=== PATIENT | male | born 1995 | race Caucasian/White ===

== ENCOUNTER 2016-11-27 11:09 | Emergency (ER) | payer OTHER ==
[~2016-11-27] VITALS: Ht 162.6 cm; Wt 71.6 kg
[~2016-11-27 11:09] MED LIST: ONDA4TAB7 SL
[2016-11-27 11:18] VITALS: TEMP 36.8; Ht 162.6 cm; Wt 71.6 kg
[2016-11-27] MEDS ORDERED: SODIUM CHLORIDE 0.9% 1000ML 1,000 ML IV STA (11:33)
[2016-11-27 11:53] LABS: BASO % 0.2 %; BASO ABS # 0.01 K/uL (0-0.2); COMPLETE YES; EOS % 1.5 %; HEMATOCRIT 47.5 % (42-52); IG% 0.2 %; LYMPH % 32.2 %; LYMPH ABS # 1.67 K/uL (1.2-3.4); MEAN CELL VOLUME 82.8 fL (80-100); MEAN CORPUSCULAR HEMOGLOBIN 29.3 pg (25-34); MEAN CORPUSCULAR HGB CONC 35.4 g/dl (32-36); MEAN PLATELET VOLUME 9.7 fL (7.4-10.4); MONO % 7.5 %; NEUT % 58.4 %; PLATELET COUNT 186 K/uL (130-400); RED BLOOD COUNT 5.74 M/uL (4.7-6.1); WHITE BLOOD COUNT 5.19 K/uL (4.8-10.8)
[2016-11-27] MEDS ORDERED: OPTIRAY 320 IV PRN (12:00)
[2016-11-27 12:09] LABS: CALCIUM 9.4 mg/dl (8.5-10.1); CREATININE 1.1 mg/dl (0.60-1.40); POTASSIUM 3.9 mmol/L (3.5-5.1)
[2016-11-27 12:12] LABS: ALB/GLOB RATIO 1.2 (0.9-2)
--- NOTE | 2016-11-27 12:28 | EMERGENCY ROOM VISIT NOTE ---
History First contact with patient: 11:21 Chief Complaint: ABDOMINAL PAIN Stated Complaint: PAIN IN STOMACH AND RIGHT TESTICLE Nursing Triage Summary: R side abdominal pain X 4 days radiates into testicles , + NV intermittently History of Present Illness The patient is a 21 year old male who presents to the Emergency Room with complaints of right testicular pain and rlq pain. The patient states the pain started 3 days ago. He states he notices an area of swelling and tenderness to the right testicle. He states he has some crampy right-sided abdominal discomfort. He rates his discomfort a 4/10. He does not recall any specific injury. He denies any fevers. He denies any nausea or vomiting. he denies diarrhea but states he has had more frequent bowel movements. He denies any dysuria, urgency, frequency. He denies any penile discharge or rash. He denies any history of similar. Review of Systems A 10 system review of systems was completed with positives and pertinent negatives listed in the HPI. Past Medical/Surgical History Medical Problems: (1) No known health problems Family History No significant family history Social History Smoking Status: Never Smoker Housing Status: lives with family Current/Historical Medications No Active Prescriptions or Reported Meds Allergies Coded Allergies: No Known Allergies (Verified , 11/27/16) Physical Exam Vital Signs Date Time Temp Pulse Resp B/P Pulse Ox O2 Delivery O2 Flow Rate FiO2 11/27/16 13:51 74 18 118/62 100 11/27/16 12:44 67 18 120/76 98 Room Air 11/27/16 11:18 36.8 72 20 97 Room Air Physical Exam VITALS: Vitals are noted on the nurse's note and reviewed by myself. Vital signs stable. GENERAL: This is a 21-year-old male, in no acute distress, nondiaphoretic, well- developed well-nourished. SKIN: The skin was without rashes, erythema, edema, or bruising. There is no tenting of the skin. Capillary reflex less than 2 seconds. HEAD: Normocephalic atraumatic. EARS: The external ears are normal in appearance. EYES: Pupils equal round and reactive to light and accommodation. Conjunctivae without injection, sclerae without icterus. Extraocular movements intact. NOSE: Patent, turbinates without inflammation or discharge. MOUTH: Mucous membranes moist. Tonsils are not enlarged. Pharynx without erythema or exudate. Uvula midline. Airway patent. Tongue does not deviate. NECK: Supple without nuchal rigidity. No JVD. HEART: Regular rate and rhythm without murmurs gallops or rubs. LUNGS: Clear to auscultation bilaterally without wheezes, rales or rhonchi. No retractions or accessory muscle use. ABDOMEN: Positive bowel sounds x 4. Soft, minimal lower abdominal tenderness, without masses or organomegaly. : The external genitalia is normal in appearance. There are no penile rashes or lesions. There is mild tenderness to palpation to the lateral aspect of the right scrotum. There is no obvious palpable mass. There is no obvious palpable hernia. MUSCULOSKELETAL: No muscle atrophy, erythema, or edema noted. Full range of motion in all extremities. Normal gait. Strength 5/5 throughout. NEURO: Patient was alert and oriented to person place and time. No focal neurological deficits. Medical Decision & Procedures ER Provider Diagnostic Interpretation: ABDOMINAL ULTRASOUND, RIGHT LOWER QUADRANT HISTORY: Pain RLA pain evaluate for hernia, appendicitis. COMPARISON: None. FINDINGS: The appendix is not identified. No evidence for an inguinal hernia. IMPRESSION: 1. No evidence for right inguinal hernia. 2. Non visibility of the appendix TESTICULAR ULTRASOUND HISTORY: Pain right testi katherine pain COMPARISON: None. FINDINGS: Right testis: There are no intratesticular masses. Normal color flow. No hydrocele. The epididymis is unremarkable. There is a small associated thrombosed varicocele adjacent to the testis. Left testis: There are no intratesticular masses. Normal color flow. No hydrocele. The epididymis is unremarkable. IMPRESSION: 1. Normal testes bilaterally. 2. Small right-sided varicocele showing evidence for probable thrombosis. Laboratory Results 11/27/16 11:40 Red Blood Count 5.74, Mean Corpuscular Volume 82.8, Mean Corpuscular Hemoglobin 29.3, Mean Corpuscular Hemoglobin Concent 35.4, Mean Platelet Volume 9.7, Neutrophils (%) (Auto) 58.4, Lymphocytes (%) (Auto) 32.2, Monocytes (%) (Auto) 7.5, Eosinophils (%) (Auto) 1.5, Basophils (%) (Auto) 0.2, Neutrophils # (Auto) 3.03, Lymphocytes # (Auto) 1.67, Monocytes # (Auto) 0.39, Eosinophils # (Auto) 0.08, Basophils # (Auto) 0.01 11/27/16 11:40 Test 11/27/16 11:40 White Blood Count 5.19 K/uL (4.8-10.8) Red Blood Count 5.74 M/uL (4.7-6.1) Hemoglobin 16.8 g/dL (14.0-18.0) Hematocrit 47.5 % (42-52) Mean Corpuscular Volume 82.8 fL (80-100) Mean Corpuscular Hemoglobin 29.3 pg (25-34) Mean Corpuscular Hemoglobin Concent 35.4 g/dl (32-36) Platelet Count 186 K/uL (130-400) Mean Platelet Volume 9.7 fL (7.4-10.4) Neutrophils (%) (Auto) 58.4 % Lymphocytes (%) (Auto) 32.2 % Monocytes (%) (Auto) 7.5 % Eosinophils (%) (Auto) 1.5 % Basophils (%) (Auto) 0.2 % Neutrophils # (Auto) 3.03 K/uL (1.4-6.5) Lymphocytes # (Auto) 1.67 K/uL (1.2-3.4) Monocytes # (Auto) 0.39 K/uL (0.11-0.59) Eosinophils # (Auto) 0.08 K/uL (0-0.5) Basophils # (Auto) 0.01 K/uL (0-0.2) RDW Standard Deviation 36.2 fL (36.4-46.3) RDW Coefficient of Variation 12.1 % (11.5-14.5) Immature Granulocyte % (Auto) 0.2 % Immature Granulocyte # (Auto) 0.01 K/uL (0.00-0.02) Urine Color YELLOW Urine Appearance CLEAR (CLEAR) Urine pH 6.5 (4.5-7.5) Urine Specific Shannon <= 1.005 (1.000-1.030) Urine Protein NEG (NEG) Urine Glucose (UA) NEG (NEG) Urine Ketones NEG (NEG) Urine Occult Blood NEG (NEG) Urine Nitrite NEG (NEG) Urine Bilirubin NEG (NEG) Urine Urobilinogen NEG (NEG) Urine Leukocyte Esterase NEG (NEG) Anion Gap 10.0 mmol/L (3-11) Est Creatinine Clear Calc Drug Dose 94.8 ml/min Estimated GFR () 109.1 Estimated GFR (Non- 94.1 BUN/Creatinine Ratio 15.0 (10-20) Calcium Level 9.4 mg/dl (8.5-10.1) Total Bilirubin 0.9 mg/dl (0.2-1) Aspartate Amino Transf (AST/SGOT) 20 U/L (15-37) Alanine Aminotransferase (ALT/SGPT) 33 U/L (12-78) Alkaline Phosphatase 56 U/L (45-117) Total Protein 8.2 gm/dl (6.4-8.2) Albumin 4.5 gm/dl (3.4-5.0) Globulin 3.7 gm/dl (2.5-4.0) Albumin/Globulin Ratio 1.2 (0.9-2) Medications Administered Medications (Trade) Dose Ordered Sig/Markell Route Start Time Stop Time Status Last Admin Dose Admin Sodium Chloride (Nss 1000ml) 1,000 ml @ 999 mls/hr Q1H1M STAT IV 11/27/16 11:33 11/27/16 12:33 DC 11/27/16 11:33 999 MLS/HR ED Course The patient was seen and examined. Previous visits were reviewed. The patient does not have a fever or leukocytosis. He does not have any significant electrolyte abnormalities. Urinalysis was negative. Ultrasounds were obtained as above. The ultrasound was nondiagnostic in regards to appendicitis. The patient does appear to have a thrombosed varicocele on the right. The patient was initially drinking oral contrast in the event that we would need to perform CT imaging of the abdomen and pelvis. However, we did find the source of the patient's pain on ultrasound and the CT imaging was canceled. The patient presents to the emergency Department with complaints of testicular pain. He does have tenderness to the right testicle. There is no obvious hernia on imaging or examination. The patient appears to have a thrombosed varicocele. This is still likely etiology of his pain. I discussed the case with urology, Dr. Paredes, he states that this will resolve on its own. The patient declined pain medication. He was advised to rest. He was given the information for urology for a follow-up if symptoms are not improving. The patient should return to the ER with any worsening symptoms. The case was discussed with Dr. Mcmillan who agrees with the assessment and treatment plan. Medical Decision DIFFERENTIAL DIAGNOSIS: Hepatitis, cholecystitis, cholangitis, biliary colic, pancreatitis, pneumonia, subdiaphragmatic abscess, appendicitis, inguinal hernia , nephrolithiasis, inflammatory bowel disease, mesenteric adenitis, peptic ulcer disease, GERD, gastritis, pancreatitis, myocardial infarction, pericarditis, ruptured aortic aneurysm, appendicitis, gastroenteritis, bowel obstruction, splenic infarct, diverticulitis, mesenteric ischemia, metabolic, peritonitis, testicular torsion, varicocele, epididymitis, neoplasm, among others. Impression Primary Impression: Thrombosed varicocele Departure Information Dispostion Home / Self-Care Condition GOOD Prescriptions No Active Prescriptions or Reported Meds Referrals Edmund Hill M.D. (PCP) Larry Paredes M.D. Patient Instructions ED Varicocele, [facility] Additional Instructions Warm compresses Motrin 600mg every 6-8 hours for moderate pain Rest Return with worsening symptoms Follow up with Dr. Paredes if pain does not improve
--- NOTE | 2016-11-27 12:32 | DIAGNOSTIC IMAGING REPORT ---
TESTICULAR ULTRASOUND HISTORY: Pain right testi katherine pain COMPARISON: None. FINDINGS: Right testis: There are no intratesticular masses. Normal color flow. No hydrocele. The epididymis is unremarkable. There is a small associated thrombosed varicocele adjacent to the testis. Left testis: There are no intratesticular masses. Normal color flow. No hydrocele. The epididymis is unremarkable. IMPRESSION: 1. Normal testes bilaterally. 2. Small right-sided varicocele showing evidence for probable thrombosis. Electronically signed by: Nick Arevalo M.D. 11/27/2016 12:30 PM Dictated Date/Time: 11/27/2016 12:29 PM
--- NOTE | 2016-11-27 12:34 | DIAGNOSTIC IMAGING REPORT ---
ABDOMINAL ULTRASOUND, RIGHT LOWER QUADRANT HISTORY: Pain RLA pain evaluate for hernia, appendicitis. COMPARISON: None. FINDINGS: The appendix is not identified. No evidence for an inguinal hernia. IMPRESSION: 1. No evidence for right inguinal hernia. 2. Non visibility of the appendix Electronically signed by: Nick Arevalo M.D. 11/27/2016 12:32 PM Dictated Date/Time: 11/27/2016 12:31 PM
[2016-11-27 13:29] LABS: MANUAL MICROSCOPIC REQUIRED? NO; URINE APPEARANCE CLEAR (CLEAR); URINE BILIRUBIN NEG (NEG); URINE COLOR YELLOW; URINE NITRITE NEG (NEG); URINE PH 6.5 (4.5-7.5); URINE SPECIFIC GRAVITY <= 1.005 (1.000-1.030); UROBILINOGEN NEG (NEG)
[2016-11-27 13:31] LABS: REVIEW REQ? NO
[2016-11-27 13:33] LABS: ZZUR CULT IF INDIC CLEAN CATCH NO
[2016-11-27 13:51] VITALS: BP 118/62; PULSE 74; O2SAT 100
== END 2016-11-27 13:53 | disposition home or self-care (01) ==
LOC: C.EDB 11:11 → C.EDC 13:53
DX: I86.1 Scrotal varices (principal)

== ENCOUNTER 2017-08-22 10:09 | Emergency (ER) | payer OTHER ==
[~2017-08-22] VITALS: Ht 162.6 cm; Wt 70.4 kg
[2017-08-22 10:22] VITALS: TEMP 37.4; Ht 162.6 cm; Wt 70.4 kg
[2017-08-22] MEDS ORDERED: ONDANSETRON INJ 2 MG/ML 2 ML VIAL IV STA (11:05)
[2017-08-22] MEDS ORDERED: SODIUM CHLORIDE 0.9% 1000ML 1,000 ML IV STA (11:05)
[2017-08-22] MEDS ORDERED: FAMOTIDINE 20MG/5ML IV PUSH IV STA (11:09)
--- NOTE | 2017-08-22 11:10 | EMERGENCY ROOM VISIT NOTE ---
History Report prepared by Theodore: Cash Austin Under the Supervision of: Dr. Kai Sanchez M.D. First contact with patient: 11:03 Chief Complaint: ABDOMINAL PAIN Stated Complaint: FEVER AB PAIN HEADACHE History of Present Illness The patient is a 22 year old male who presents to the Emergency Room with complaints of generalized abdominal cramping that began yesterday morning. When his symptoms began, he was slightly nauseated with a headache and mild pain. He then became febrile with burning upon urination. He denies any hematuria. He tried to take nap, but when he woke up his cramping became severe with multiple episodes of diarrhea. He denies any melena, hematochezia, or vomiting. This has happened to him in the past, but his past episode included vomiting. He denies any known medical problems or sick contacts. Whenever he tries to eat, he becomes more nauseated. He denies any pain in his testicles. Source of History: patient Onset: yesterday morning Position: abdomen Symptom Intensity: moderate Quality: other (Cramping) Timing: constant Associated Symptoms: + fevers, + headache, + nausea, + diarrhea, + urinary symptoms (burning), No vomiting, No melena, No hematochezia Review of Systems See HPI for pertinent positives and negatives. A total of ten systems were reviewed and were otherwise negative. Past Medical & Surgical Medical Problems: (1) No known health problems Family History No significant family history Social History Smoking Status: Never Smoker Smokeless Tobacco Use: No Drug Use: none Marital Status: in relationship Housing Status: lives with family Current/Historical Medications No Active Prescriptions or Reported Meds Allergies Coded Allergies: No Known Allergies (Verified , 08/22/17) Physical Exam Vital Signs Date Time Temp Pulse Resp B/P (MAP) Pulse Ox O2 Delivery O2 Flow Rate FiO2 08/22/17 15:51 77 18 131/77 98 08/22/17 13:00 89 18 140/79 98 Room Air 08/22/17 10:22 37.4 96 17 118/59 93 Room Air Physical Exam GENERAL: Awake, alert, well-appearing, in no distress HENT: Normocephalic, atraumatic. Oropharynx reveals dry mucous membranes. EYES: Normal conjunctiva. Sclera non-icteric. NECK: Supple. No nuchal rigidity. FROM. No JVD. RESPIRATORY: Clear to auscultation. CARDIAC: Regular rate, normal rhythm. Extremities warm and well perfused. Pulses equal. ABDOMEN: Soft, non-distended. Mild generalized abdominal discomfort. No discrete tenderness. No peritoneal signs. No rebound or guarding. No masses. RECTAL: Deferred. exam: no lesions or discharge. No epididymal ttp. Cremasteric reflex intact. MUSCULOSKELETAL: Chest examination reveals no tenderness. The back is symmetrical on inspection without obvious abnormality. There is no CVA tenderness to palpation. No joint edema. LOWER EXTREMITIES: Calves are equal size bilaterally and non-tender. No edema. No discoloration. NEURO: Normal sensorium. No sensory or motor deficits noted. SKIN: No rash or jaundice noted. Medical Decision & Procedures Laboratory Results 08/22/17 11:25 Red Blood Count 5.40, Mean Corpuscular Volume 84.4, Mean Corpuscular Hemoglobin 30.6, Mean Corpuscular Hemoglobin Concent 36.2, Mean Platelet Volume 9.7, Neutrophils (%) (Auto) 91.2, Lymphocytes (%) (Auto) 5.3, Monocytes (%) (Auto) 3.2, Eosinophils (%) (Auto) 0.0, Basophils (%) (Auto) 0.1, Neutrophils # (Auto) 9.88, Lymphocytes # (Auto) 0.57, Monocytes # (Auto) 0.35, Eosinophils # (Auto) 0.00, Basophils # (Auto) 0.01 08/22/17 11:25 Test 08/22/17 00:00 08/22/17 11:25 Urine Color DK YELLOW Urine Appearance CLEAR (CLEAR) Urine pH 5.5 (4.5-7.5) Urine Specific [place] 1.025 (1.000-1.030) Urine Protein 1+ (NEG) Urine Glucose (UA) NEG (NEG) Urine Ketones 1+ (NEG) Urine Occult Blood TRACE (NEG) Urine Nitrite NEG (NEG) Urine Bilirubin NEG (NEG) Urine Urobilinogen NEG (NEG) Urine Leukocyte Esterase NEG (NEG) Urine WBC (Auto) 1-5 /hpf (0-5) Urine RBC (Auto) 0-4 /hpf (0-4) Urine Hyaline Casts (Auto) 5-10 /lpf (0-5) Urine Epithelial Cells (Auto) 10-20 /lpf (0-5) Urine Bacteria (Auto) NEG (NEG) White Blood Count 10.83 K/uL (4.8-10.8) Red Blood Count 5.40 M/uL (4.7-6.1) Hemoglobin 16.5 g/dL (14.0-18.0) Hematocrit 45.6 % (42-52) Mean Corpuscular Volume 84.4 fL (80-100) Mean Corpuscular Hemoglobin 30.6 pg (25-34) Mean Corpuscular Hemoglobin Concent 36.2 g/dl (32-36) Platelet Count 135 K/uL (130-400) Mean Platelet Volume 9.7 fL (7.4-10.4) Neutrophils (%) (Auto) 91.2 % Lymphocytes (%) (Auto) 5.3 % Monocytes (%) (Auto) 3.2 % Eosinophils (%) (Auto) 0.0 % Basophils (%) (Auto) 0.1 % Neutrophils # (Auto) 9.88 K/uL (1.4-6.5) Lymphocytes # (Auto) 0.57 K/uL (1.2-3.4) Monocytes # (Auto) 0.35 K/uL (0.11-0.59) Eosinophils # (Auto) 0.00 K/uL (0-0.5) Basophils # (Auto) 0.01 K/uL (0-0.2) RDW Standard Deviation 37.2 fL (36.4-46.3) RDW Coefficient of Variation 12.2 % (11.5-14.5) Immature Granulocyte % (Auto) 0.2 % Immature Granulocyte # (Auto) 0.02 K/uL (0.00-0.02) Anion Gap 8.0 mmol/L (3-11) Est Creatinine Clear Calc Drug Dose 93.6 ml/min Estimated GFR () 118.7 Estimated GFR (Non- 102.4 BUN/Creatinine Ratio 10.2 (10-20) Calcium Level 9.2 mg/dl (8.5-10.1) Total Bilirubin 1.0 mg/dl (0.2-1) Aspartate Amino Transf (AST/SGOT) 30 U/L (15-37) Alanine Aminotransferase (ALT/SGPT) 46 U/L (12-78) Alkaline Phosphatase 52 U/L (45-117) Total Protein 8.0 gm/dl (6.4-8.2) Albumin 3.9 gm/dl (3.4-5.0) Globulin 4.1 gm/dl (2.5-4.0) Albumin/Globulin Ratio 1.0 (0.9-2) Lipase 124 U/L (73-393) Laboratory results reviewed by me Medications Administered Medications (Trade) Dose Ordered Sig/Markell Route Start Time Stop Time Status Last Admin Dose Admin Sodium Chloride 1,000 ml @ 999 mls/hr Q1H1M STAT IV 08/22/17 11:05 08/22/17 12:05 DC 08/22/17 11:46 999 MLS/HR Ondansetron HCl (Zofran Inj) 4 mg NOW STAT IV 08/22/17 11:05 08/22/17 11:10 DC 08/22/17 11:46 4 MG Famotidine (Pepcid 20mg Iv Push) 20 mg NOW STAT IV 08/22/17 11:09 08/22/17 11:10 DC 08/22/17 11:47 20 MG Azithromycin (Zithromax Tab) 1,000 mg NOW STAT PO 08/22/17 14:22 08/22/17 14:24 DC 08/22/17 15:36 1,000 MG Ceftriaxone Sodium (Rocephin Im) 250 mg NOW STAT IM 08/22/17 14:22 08/22/17 14:24 DC 08/22/17 15:35 250 MG ED Course 1103: The patient was evaluated in room C6. A complete history and physical exam was performed. 1450: I reevaluated the patient. Discussed results and discharge instructions: He verbalized understanding and agreement. The patient is ready for discharge. Medical Decision I reviewed the patient's past medical history, medications, and the nursing notes as described above. Differential diagnosis includes but is not limited to: gastroenteritis, diverticulitis, colitis, biliary etiology, pancreatitis, appendicitis, UTI, pyelonephritis, and STI. The patient is a 22-year-old gentleman who presents to emergency department with the complaint of nausea vomiting and diarrhea per history of present illness. Arrival the patient is relatively well-appearing, no acute distress, AFVSS. Abdomen is soft nontender nondistended. Negative De Luna sign. No tenderness over McBurney's point. The WBC 10.8 is nonspecific. LFTs unremarkable. UA negative for infection however does have RBCs. Urine GCC sent and pending. Discussed with the patient that his symptoms of dysuria or consistent with urethritis, for which STI or possibility. The patient denies any concerns for STI, he was offered opportunity for empiric treatment which she was agreeable for. The patient was given ceftriaxone and azithromycin. Findings and plan for follow-up reviewed with patient. Patient agreeable and d/c 'd per discharge instructions. Medication Reconcilliation Current Medication List: was personally reviewed by me Blood Pressure Screening Patient's blood pressure: Elevated blood pressure Blood pressure disposition: Elevated BP felt to be situational Impression Primary Impression: Acute gastroenteritis Additional Impressions: Urethritis Hematuria Scribe Attestation The scribe's documentation has been prepared under my direction and personally reviewed by me in its entirety. I confirm that the note above accurately reflects all work, treatment, procedures, and medical decision making performed by me. Departure Information Dispostion Home / Self-Care Prescriptions No Active Prescriptions or Reported Meds Forms HOME CARE DOCUMENTATION FORM, IMPORTANT VISIT INFORMATION Patient Instructions ED Food Poison Or Gastroenteritis, ED Hematuria, [facility], Urethritis Men Additional Instructions Please follow up with your primary care physician in the next 1-3 days for re- evaluation and to reassess your urine, which had a small amount of blood. You likely have viral gastroenteritis. You were also treated empirically for urethritis (in case your test returns positive). You will only be contacted if your test is positive. Otherwise, your exam and lab results did not show signs of an emergent condition at this time. Return to the emergency department for worsening symptoms as described in the accompanying instructions. Problem Qualifiers
[2017-08-22 11:42] LABS: BASO % 0.1 %; BASO ABS # 0.01 K/uL (0-0.2); COMPLETE YES; HEMATOCRIT 45.6 % (42-52); IG% 0.2 %; LYMPH % 5.3 %; LYMPH ABS # 0.57 K/uL (1.2-3.4); MEAN CELL VOLUME 84.4 fL (80-100); MEAN CORPUSCULAR HEMOGLOBIN 30.6 pg (25-34); MEAN CORPUSCULAR HGB CONC 36.2 g/dl (32-36); MEAN PLATELET VOLUME 9.7 fL (7.4-10.4); MONO % 3.2 %; NEUT % 91.2 %; PLATELET COUNT 135 K/uL (130-400); WHITE BLOOD COUNT 10.83 K/uL (4.8-10.8)
[2017-08-22 11:59] LABS: BUN/CREATININE RATIO 10.2 (10-20); CALCIUM 9.2 mg/dl (8.5-10.1); CREATININE 1.02 mg/dl (0.60-1.40); POTASSIUM 3.5 mmol/L (3.5-5.1)
[2017-08-22 13:46] LABS: URINE APPEARANCE CLEAR (CLEAR); URINE COLOR DK YELLOW; URINE NITRITE NEG (NEG); URINE PH 5.5 (4.5-7.5); URINE SPECIFIC GRAVITY 1.025 (1.000-1.030); UROBILINOGEN NEG (NEG); ZZUR CULT IF INDIC CLEAN CATCH NO
[2017-08-22 13:53] LABS: MANUAL MICROSCOPIC REQUIRED? NO; REVIEW REQ? NO
[2017-08-22 13:56] LABS: URINE BILIRUBIN NEG (NEG)
[2017-08-22] MEDS ORDERED: AZITHROMYCIN 250 MG TAB PO STA (14:22)
[2017-08-22] MEDS ORDERED: CEFTRIAXONE SOD 350MG/ML 1 GM VIAL IM STA (14:22)
[2017-08-22 15:51] VITALS: BP 131/77; PULSE 77; O2SAT 98
[2017-08-25 02:28] LABS: CHLAMYDIA TRACH RNA*** NOT DETECTED (NOT DETECTED); GC (NEIS GONORRHOEAE)RNA** NOT DETECTED (NOT DETECTED)
== END 2017-08-22 15:53 | disposition home or self-care (01) ==
LOC: C.EDB 10:11 → C.EDC 15:53
DX: K52.9 Noninfective gastroenteritis and colitis, unspecified (principal); N34.2 Other urethritis; R31.9 Hematuria, unspecified

== ENCOUNTER 2024-02-26 11:47 | Inpatient (IN) ==
--- NOTE | 2024-02-26 12:04 | Emergency Department Note ---
Impression & Plan General psychiatric examination requested by authority, Alcohol intoxication, Threatening suicide, Acute depression ED Provider Note Name: JUAN MANUEL BUNDY Age: 28 Sex: Male Arrives Via: Police Cruiser Informant: Patient, police, 302 warrant ED Provider: Jan Tovar MD Chief Complaint: Mental health evaluation Impression: As per impressions above Medical Decision Makin-year-old male arrives for mental health evaluation. Patient reportedly intoxicated last evening with friends when he destroyed much of his apartment and then attempted to take gun to shoot himself. Friends had restrain him and concerns him. This resulted in 302 warrant being filed against patient. Police brought patient in this afternoon for evaluation. Patient is still intoxicated on arrival is quite agitated and upset. As he sobered throughout the afternoon he calmed down significantly. Mother and brother at bedside the patient is much more understanding of the severity of what it happened last night. Admits alcohol use but does not think he was going to kill himself. I discussed my concerns that given weapon involved significant destruction to the apartment and the severity of what it happened last night along with the fact there is a 302 warrant now placed we will need to have a mild case management evaluate him but psychiatric hospitalization may be necessary. Due to need for sobering he was signed out to Dr Richard pending fully sober. Triage/Nursing Notes reviewed by Me Differential:Mood disorder, infection, hypoglycemia, electrolyte abnormalities, cardiac sources, intracerebral event, toxicologic, trauma, neurologic, as well as other pathologies. Vital Signs: reviewed and remarkable for HTN Labs:ED labs Reviewed by me and remarkable for +alcohol level Imaging:declines imaging of hand, full ROM, no significant pain despite swelling. Consults:Mental Health Case Management: They have reviewed the case and notes significant concerns of police and 302 warrant. They will evaluate once fully sober. Plan: Disposition: Signed out to Dr Richard Condition: Good History of Present Illness: 28-year-old male arrives for mental health evaluation. According to through to side warrant as well as police patient has been drinking for several days after significant other started dating someone else. Apparently he has been destroying his house breaking things and being aggressive. Last evening he opened a drawer containing a handgun at which point his roommates restrained him and called [facility] delegate stating they are concerned for his life. Police picked him up this morning and brought him to ED for further evaluation. Patient is refusing to answer any questions. He vaguely refers to previous hospitalizations but it is difficult to tell. He at times admits alcohol use and destroying his house and at others states that this is purely hearsay. Past Medical History: Unable to obtain Home Medications: Unable to obtain Allergies: Unable to confirm that no drug allergy Vitals:Blood Pressure: 166/68, Pulse 93, RR 16, T 36.6C, O2 96% on RA Physical Exam: GENERAL: Patient is verbally combative and agitated though sitting in bed. He is refusing examination except that from across the room. Patient does smell somewhat of alcohol and difficult to determine if intoxicated or just noncompliant/agitated. EXTREMITIES: Bruising and lacerations noted over extremity surfaces right hand and knuckles. Unable to physically examine other than visual. NEUROLOGIC: Alert and oriented. No focal neurologic deficits appreciated SKIN: Heavily tattooed no rash, no jaundice, no diaphoresis. PSYCH: Patient is agitated mildly tangential unable to do full psych eval given patient refusing to answer most questions. GCS: 15 ED Course: Times/Reassessments: Repeat examination as patient sobered up he is much more cooperative. He denies any significant medical issue at this time. He states his hand is feeling all right. Agreeable to mental health evaluation once fully sober. Jan Tovar MD Past Med/Surg History Problem List (Updated 02/26/24 @ 18:05 by Jan Tovar MD) Acute depression (Acute) Threatening suicide (Acute) Alcohol intoxication (Acute) General psychiatric examination requested by authority (Acute) No known health problems (Chronic) Dehydration (Acute) Nausea vomiting and diarrhea (Acute) Social History Smoking Status: Unknown if ever smoked Preferred Language: Gibraltarian Allergies Allergies Allergy/AdvReac Type Severity Reaction Status Date / Time No Known Allergies Allergy Verified 08/22/17 12:17 Results & Data (ED) Vital Signs Vital Signs - 24 hr 02/26/24 11:50 02/26/24 12:49 02/26/24 15:32 Temperature 36.6 C Temperature Source Oral Pulse Rate [Right Finger] 72 Pulse Rhythm [Right Finger] Respiratory Rate 16 16 Respiratory Effort / Characteristics Non-Labored Spontaneous Non-Labored Respiratory Depth Normal Normal Blood Pressure [Right Arm] 137/88 Blood Pressure Mean [Right Arm] 104 Pulse Oximetry 97 Oxygen Delivery Method Room Air Sepsis New/Unexplained Change in Mental Status N/A Sepsis Action Taken by Nursing No Action Required 02/26/24 16:16 02/26/24 18:00 Temperature 36.6 C Temperature Source Oral Pulse Rate [Right Finger] 93 H 84 Pulse Rhythm [Right Finger] Regular Regular Respiratory Rate 16 16 Respiratory Effort / Characteristics Respiratory Depth Normal Blood Pressure [Right Arm] 166/68 H 124/71 Blood Pressure Mean [Right Arm] 100 88 Pulse Oximetry 96 96 Oxygen Delivery Method Room Air Room Air Sepsis New/Unexplained Change in Mental Status Sepsis Action Taken by Nursing Laboratory Data 02/26/24 12:44 02/26/24 12:44 Lab Results 02/26/24 Range/Units 12:44 WBC 7.41 (4.8-10.8) K/ul RBC 5.84 (4.70-6.10) M/uL Hgb 17.5 (14.0-18.0) g/dl Hct 50.6 (42.0-52.0) % MCV 86.6 (80.0-100.0) fL MCH 30.0 (25.0-34.0) pg MCHC 34.6 (32.0-36.0) g/dL RDW Std Deviation 39.3 (36.4-46.3) fL RDW Coeff of Alexandra 12.4 (11.5-14.5) % Plt Count 236 (130-400) K/uL MPV 9.0 L (9.4-12.4) fL Immature Gran % (Auto) 0.3 % Neut % (Auto) 64.1 % Lymph % (Auto) 30.1 % [place] % (Auto) 4.9 % Eos % (Auto) 0.1 % Baso % (Auto) 0.5 % Neut # (Auto) 4.75 (1.40-6.50) K/uL Lymph # (Auto) 2.23 (1.20-3.40) K/uL [place] # (Auto) 0.36 (0.11-0.59) K/uL Eos # (Auto) 0.01 (0.00-0.50) K/uL Baso # (Auto) 0.04 (0.00-0.20) K/uL Immature Gran # (Auto) 0.02 (0.01-0.20) K/uL Sodium 140 (136-145) mmol/L Potassium 4.3 (3.5-5.1) mmol/L Chloride 104 (98-107) mmol/L Carbon Dioxide 26 (21-32) mmol/L Anion Gap 10 (3-11) BUN 11 (6-23) mg/dl Creatinine 0.91 (0.6-1.4) mg/dl Est Cr Clr Drug Dosing Not Reportable Est GFR ( Amer) 130.6 ml/min Est GFR (Non-Af Amer) 112.7 ml/min BUN/Creatinine Ratio 12.1 (10-20) Glucose 98 (70-99(Fasting)) mg/dl Calcium 9.7 (8.6-10.3) mg/dl Total Bilirubin 0.5 (0.2-1.0) mg/dl AST 37 (13-39) U/L ALT 25 (7-52) U/L Alkaline Phosphatase 46 (34-104) U/L Total Protein 8.7 H (6.0-8.3) gm/dl Albumin 5.0 (3.4-5.0) gm/dl Globulin 3.7 (2.5-4.0) gm/dl Albumin/Globulin Ratio 1.4 (0.9-2) TSH 0.969 (0.300-4.500) uIu/ml Urine Color Yellow Urine Appearance Clear (Clear) Urine pH 6.0 (4.5-7.5) Ur Specific [place] 1.016 (1.000-1.030) Urine Protein 2+ H (Negative) Urine Glucose (UA) Negative (Negative) Urine Ketones Negative (Negative) Urine Blood Negative (Negative) Urine Nitrite Negative (Negative) Urine Bilirubin Negative (Negative) Urine Urobilinogen Negative (Negative) Ur Leukocyte Esterase Negative (Negative) Urine WBC (Auto) 0-5 (0-5) /hpf Urine RBC (Auto) 0-2 (0-2) /hpf U Hyaline Cast (Auto) 0-2 (0-2) /lpf U Epithel Cells (Auto) 0-2 (0-2) /hpf Urine Bacteria (Auto) None Seen (None Seen) Salicylates < 3.0 L (3.0-30) mg/dl Urine Opiates Screen Neg (Neg) Ur Methadone, Qual Neg (Neg) Urine Fentanyl Screen Neg (Neg) Acetaminophen < 3 L (10-30) ug/ml Urine Barbiturates Neg (Neg) Ur Phencyclidine (PCP) Neg (Neg) U Amphetamin/Meth Scrn Neg (Neg) MDMA (Ecstasy) Screen Neg (Neg) U Benzodiazepines Scrn Neg (Neg) Ur Cocaine Metabolite Pos H (Neg) U Marijuana (THC) Screen Pos H (Neg) Ethyl Alcohol mg/dL 250.4 H (<10.0) mg/dl Discharge Plan Visit Data Chief Complaint: Mental Health Evaluation Stated Complaint: MHE ED Provider: Adilene Richard Discharge Problem: General psychiatric examination requested by authority, Alcohol intoxication, Threatening suicide, Acute depression Forms Stand Alone Forms: [facility], Suicide Prevention Resources Referrals Referrals: Edmund Hill MD [Primary Care Provider] - Discharge Problem: Alcohol intoxication Qualifiers: Complication of substance-induced condition: uncomplicated Qualified Code(s): F 10.920 - Alcohol use, unspecified with intoxication, uncomplicated
[2024-02-26 13:21] LABS: Basophils # (auto) 0.04 K/uL (0.00-0.20); Basophils % (auto) 0.5 %; Eosinophils # (auto) 0.01 K/uL (0.00-0.50); Eosinophils % (auto) 0.1 %; Hematocrit (blood only) 50.6 % (42.0-52.0); Hemoglobin 17.5 g/dl (14.0-18.0); Immature Granulocytes # (auto) 0.02 K/uL (0.01-0.20); Immature Granulocytes % (auto) 0.3 %; Lymphocytes # (auto) 2.23 K/uL (1.20-3.40); Lymphocytes % (auto) 30.1 %; Mean Corpuscular Hgb Conc 34.6 g/dL (32.0-36.0); Mean Corpuscular Volume 86.6 fL (80.0-100.0); Monocytes # (auto) 0.36 K/uL (0.11-0.59); Monocytes % (auto) 4.9 %; Neutrophils # (auto) 4.75 K/uL (1.40-6.50); Neutrophils % (auto) 64.1 %; Platelet Count 236 K/uL (130-400); RDW Coefficient of Variation 12.4 % (11.5-14.5); RDW Standard Deviation 39.3 fL (36.4-46.3); Red Blood Count 5.84 M/uL (4.70-6.10); White Blood Count 7.41 K/ul (4.8-10.8)
[2024-02-26 13:26] LABS: Appearance Urine Clear (Clear); Bacteria Urine Automated None Seen (None Seen); Bilirubin Urine Negative (Negative); Blood Urine Negative (Negative); Cast Urine Automated 0-2 /lpf (0-2); Color Urine Yellow; Epithelial Cell Urine Auto 0-2 /hpf (0-2); Glucose Urine UA Negative (Negative); Ketones Urine Negative (Negative); Leukocyte Esterase Urine Negative (Negative); Nitrite Urine Negative (Negative); Protein Urine 2+ (Negative); RBC Urine Automated 0-2 /hpf (0-2); Specific Gravity Urine 1.016 (1.000-1.030); Urobilinogen Urine Negative (Negative); WBC Urine Automated 0-5 /hpf (0-5)
[2024-02-26 13:34] LABS: Acetaminophen < 3 ug/ml (10-30); Salicylate < 3.0 mg/dl (3.0-30)
[2024-02-26 13:50] LABS: Anion Gap 10 (3-11); Bilirubin,Total 0.5 mg/dl (0.2-1.0); Calcium 9.7 mg/dl (8.6-10.3); Carbon Dioxide 26 mmol/L (21-32); Chloride 104 mmol/L (98-107); Potassium 4.3 mmol/L (3.5-5.1); Sodium 140 mmol/L (136-145)
[2024-02-26 13:56] LABS: Alanine Aminotransferase 25 U/L (7-52); Albumin Globulin Ratio 1.4 (0.9-2); Alkaline Phosphatase 46 U/L (34-104); Aspartate Aminotransferase 37 U/L (13-39); BUN Creatinine Ratio 12.1 (10-20); Blood Urea Nitrogen 11 mg/dl (6-23); Est GFR (African American) 130.6 ml/min; Est GFR (Non-African American) 112.7 ml/min; Globulin 3.7 gm/dl (2.5-4.0); Glucose 98 mg/dl (70-99(Fasting)); Total Protein 8.7 gm/dl (6.0-8.3)
[2024-02-26 14:00] LABS: Amphetamines+Metham, Urine Neg (Neg); Barbiturates, Urine Neg (Neg); Benzodiazepine, Urine Neg (Neg); Cocaine, Urine Pos (Neg); Fentanyl, Urine Neg (Neg); MDMA (Ecstacy), Urine Neg (Neg); Marijuana, Urine Pos (Neg); Methadone, Urine Neg (Neg); Opiate, Urine Neg (Neg); Phencyclidine, Urine Neg (Neg)
[2024-02-26 14:09] LABS: Thyroid Stimulating Hormone 0.969 uIu/ml (0.300-4.500)
[2024-02-26] MEDS ORDERED: BISMUTH SUBSALICYLATE LIQD 236 ML PO PRN (23:47)
[2024-02-26] MEDS ORDERED: SODIUM CHLORIDE 0.65% NA SOLN 45 ML (OCEAN) PRN (23:47)
[2024-02-26] MEDS ORDERED: ACETAMINOPHEN 325 MG TAB PO PRN (23:47)
[2024-02-26] MEDS ORDERED: hydrOXYzine HCl 25 MG TAB PO PRN (23:47)
[2024-02-26] MEDS ORDERED: MAGNESIUM HYDROXIDE SUSP 30 ML UDC PO PRN (23:47)
[2024-02-26] MEDS ORDERED: ALUMINUM/MAGNESIUM SUSP 30 ML UDC PO PRN (23:47)
--- NOTE | 2024-02-27 00:21 | Emergency Department Note ---
ED Visit Note Patient was signed out to me by Dr. Tovar. Patient was pending clinical sobriety and reassessment for suicidality. Patient was reassessed around 8:30 PM and was willing to sign an inpatient voluntary 201 for inpatient admission for his suicidal ideation. History of 2 was overturned by myself, given that he is willing to voluntarily sign in. Patient was referred to [facility] inpatient psychiatric unit, [address] [place] [address]. They accepted the patient for inpatient evaluation. .
[2024-02-27] MEDS: HALOPERIDOL LACTATE 5 MG/ML 1 ML VIAL IM STA (07:36)
[2024-02-27] MEDS: LORazepam 1 MG/1 ML SYR ED Inj Use IM STA (07:36)
[2024-02-27] MEDS: SERTRALINE HCL 50 MG TABLET PO SCH (13:07)
--- NOTE | 2024-02-27 19:05 | History & Physical ---
Date of Service February 27, 2024 Impression / Recommendations Impression JUAN MANUEL BUNDY is a 28-year-old white male who presents with an interrupted suicide attempt while intoxicated. No past psychiatric history. Brought in by police. Blood alcohol of 250 on admission. Was admitted on 02/26/24 22:43 on a 201 voluntary commitment for suicide attempt. Patient presents symptoms consistent for major depressive disorder, recurrent, moderate, generalized anxiety disorder, alcohol abuse. He presents multiple past depressive episodes. Likely his recent suicide attempt was due to loss of inhibitions from excess alcohol use in the context of ongoing depression and anxiety. It appears that action was impulsive as patient denies current or historical suicidal intent. Labs reviewed: CBC, CMP, TSH, UA were within normal limits. UDS was positive for cocaine and THC. Blood alcohol of 250 on admission. He would benefit from initiation of an SSRI antidepressant and as needed anxiety medication. Will inform family to hold gun for safety issues. He would benefit from outpatient counseling and alcohol abstinence. Overall, I spent a total of 60 minutes with this case including review of chart records, nursing report, review of lab work, direct evaluation of the patient at bedside, counseling the patient, multidisciplinary team meeting, orders, and documentation in the electronic health record. (1) Suicide attempt: (2) MDD (major depressive disorder), recurrent episode, moderate: (3) Alcohol abuse: (4) Generalized anxiety disorder: Inventory Assets Strengths: family support, financial support Needs: alcohol abstinence, counseling Suicide Risk Level Suicide Risk Level: Moderate (q15 min suicide checks) Risk Factors Assessment Male: Yes : Yes Do You Have Access To A Gun?: No (pt reports "no" but had gun in his drawer at home) Health Problems: No Mental Health Diagnoses: Yes Substance Use Disorders: Yes Previous Attempt: No Family History of Suicide: No Previous Psychiatric Hospitalization: No Hopelessness: No Protective Factors Assessment Anglican Beliefs: Yes : No Responsible for Young Children: No Employed: Yes Stable Relationships: Yes Supportive Family: Yes Good Rapport with Provider: Yes Absence of Any Risk Factors Above: No Psychiatric History Identifying Data JUAN MANUEL BUNDY is a 28-year-old white male who presents with an interrupted suicide attempt while intoxicated. No past psychiatric history. Brought in by police. Blood alcohol of 250 on admission. Was admitted on 02/26/24 22:43 on a 201 voluntary commitment for suicide attempt. Chief Complaint Interrupted suicide attempt History of Present Illness From ER note " According to through to side warrant as well as police patient has been drinking for several days after significant other started dating someone else. Apparently he has been destroying his house breaking things and being aggressive. Last evening he opened a drawer containing a handgun at which point his roommates restrained him and called [place] stating they are concerned for his life." Patient reports breaking up with girlfriend of 2 years a few months ago. Has complained of being more anxious and stressed. Started drinking more alcohol after the break-up; denies a drinking problem before. Reports alcohol helps cope with his feelings. Last night, he does not remember what happened after he got intoxicated however reports hearing that he destroyed his apartment and had his gun at his side. His roommates had to restrain him from hurting himself and 911 was called. Reports his father will hold his gun in a safe and is agreeable to not have it in his possession for the coming months. He presents a plan to stop drinking, see a therapist. Previously was drinking socially and recently escalated use. Sober days on weekdays. Smokes marijuana 3-4 times a week at bedtime for sleep and anxiety relief. Endorses social use of cocaine. Denies having regular drug or alcohol problem; denies other drug use. Reports for the past few months he has low mood, cannot fall and maintain his sleep, low energy, poor concentration, less interest in activities, increased guilt, and decreased appetite. He denies current suicidal ideation or suicidal ideation preceding the event. Reports past similar episodes of depression 2 years ago after a break-up with his girlfriend of 6 years and this lasted months. 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 Reports in the absence of depressive episodes continues to ruminate about different aspects of his life, anticipatory anxiety, and this has mild physical symptoms associated with it. Denies a history of panic symptoms. Denies history of multiple days of lack of sleep with elevated mood, energy, activity. Denies history of auditory or visual hallucinations. He denies history of suicide attempts. Reports having a good childhood. Denies physical, emotional, sexual abuse. Reports paternal grandfather had alcohol dependence. Father has anxiety disorder and is treated on medication. Grew up in [place] and parents were supportive. Works at [employer]. Hobbies include enemy fighting and weightlifting. Past Psychiatric History Current Psychiatric Diagnosis: no prior diagnoses Do You Have Access To A Gun?: No (pt reports "no" but had gun in his drawer at home) History of Previous Suicide Attempt: No Allergies Allergy/AdvReac Type Severity Reaction Status Date / Time No Known Allergies Allergy Verified 08/22/17 12:17 Home Medications Medication Instructions Recorded Confirmed Type No Known Home Medications 02/26/24 02/26/24 History Alcohol History Hx of Alcohol Use Over the Past 12 Months: Yes AUDIT Total Score: 20 Smoking Use Have You Smoked or Used Tobacco Products in the Last 30 Days: No Smoking Status: Never smoker Substance History Hx of Prescription Med Misuse Over the Past 12 Months: No Hx of Over the Counter Med Misuse Over the Past 12 Months: No Hx of Inhalent Misuse Over the Past 12 Months: No Hx of Organic Substance Use Over the Past 12 Months: Yes Hx of Illegal Substances/Street Drug Use Over Past 12 Months: Yes Problems as a Result of Past Substance Use: Attempted Suicide Problems as a Result of Past Substance Use Comments: Attempted to use firearm on self while intoxicated Personal History Living Arrangements: Apartment Highest Grade Completed: High School Graduate Marital Status: Single Number Of Children: 0 Beliefs That Will Affect Care: None Patient History Social History Smoking Status: Never smoker Preferred Language: Estonian Communication Ability: Effective Theatrical Dresser Required: No Beliefs That Will Affect Care: None Feels Safe at Home: Yes Gender Identity: Male Assistive Devices: None Physical Exam Mental Examination: Appearance: Disheveled Eye Contact: Fleeting Contact Motor Behavior: Restless Speech: Normal Mood: Anxious and Dyphoric Affect: Congruent Thought Process: Intact Thought Content: Intact and Linear Hallucinations: None Insight: Poor Judgement: Poor (recent attempt) Vital Signs (Past 24 Hours): Last Vital Signs Temp 36.9 C 02/27/24 06:48 Pulse 71 02/27/24 06:48 Resp 16 02/27/24 06:48 BP 156/78 H 02/27/24 06:48 Pulse Ox 97 02/26/24 23:53 O2 Del Method Room Air 02/26/24 23:53 Results & Data ([facility]) Laboratory Results Laboratory Results - last 24 hr 02/26/24 21:31 SARS-CoV-2, RNA, NAAT NEGATIVE Current Inpatient Medications Current Inpatient Medications: Current Inpatient Medications Acetaminophen (Acetaminophen 325 Mg Tab) 650 mg PO Q4H PRN PRN Reason: Headache or Minor Fever Stop: 03/27/24 23:46 Al Hydrox/Mg Hydrox/Simethicone (Aluminum/Magnesium Susp 30 Ml Udc) 30 ml PO Q4H PRN PRN Reason: GI Upset Stop: 03/27/24 23:46 Bismuth Subsalicylate (Bismuth Subsalicylate Liqd 236 Ml) 15 ml PO PRN PRN PRN Reason: Loose Stool Stop: 03/27/24 23:46 Hydroxyzine HCl (Hydroxyzine Hcl 25 Mg Tab) 50 mg PO HSZ PRN PRN Reason: Insomnia Stop: 03/27/24 23:46 Hydroxyzine HCl (Hydroxyzine Hcl 25 Mg Tab) 25 mg PO Q4H PRN PRN Reason: Anxiety Stop: 03/27/24 23:46 Magnesium Hydroxide (Magnesium Hydroxide Susp 30 Ml Udc) 30 ml PO DAILY PRN PRN Reason: Constipation Stop: 03/27/24 23:46 Sertraline HCl (Sertraline Hcl 50 Mg Tablet) 50 mg PO QAM JOSEPH Stop: 03/28/24 12:29 Last Admin: 02/27/24 13:07 Dose: 50 mg Sodium Chloride (Sodium Chloride 0.65% Na Soln 45 Ml ([place])) 1 - 2 sprays NA PRN PRN PRN Reason: Nasal Dryness/Congestion Stop: 03/27/24 23:46
--- NOTE | 2024-02-28 12:56 | Psychiatric Progress Note ---
Date of Service February 28, 2024 Impression / Recommendations Impression JUAN MANUEL BUNDY is a 28-year-old white male who presents with an interrupted suicide attempt while intoxicated. No past psychiatric history. Brought in by police. Blood alcohol of 250 on admission. Was admitted on 02/26/24 22:43 on a 201 voluntary commitment for suicide attempt. A: Patient appears dysphoric with constricted affect and limited reactivity. Likely due to ongoing depression and mild alcohol withdrawal. When reflecting on symptoms concerning for depression in the past and currently he appears to be minimizing and presents poor insight into the contributions that lead to escalating alcohol use and suicidal ideation. He was counseled on importance of medication adherence, side effects of antidepressants, benefits of psychotropics and therapy. Unlikely antidepressant is causing sleep disturbance or increased anxiety and was likely a pre-existing symptom prior to initiation. Overall, I spent a total of 40 minutes with this case including review of chart records, nursing report, review of lab work, direct evaluation of the patient at bedside, counseling the patient, multidisciplinary team meeting, orders, and documentation in the electronic health record. (1) Suicide attempt: (2) MDD (major depressive disorder), recurrent episode, moderate: (3) Alcohol abuse: (4) Generalized anxiety disorder: Plan 02/28/2024: Continue medications and treatment plan. Encourage use of Vistaril as needed for sleep and anxiety. 02/27/2024: Initiate Sertraline 50mg QD for depression and anxiety. Inventory Assets Strengths: family support, financial support Needs: alcohol abstinence, counseling Suicide Risk Level Suicide Risk Level: Moderate (q15 min suicide checks) Risk Factors Assessment Male: Yes : Yes Do You Have Access To A Gun?: No (pt reports "no" but had gun in his drawer at home) Health Problems: No Mental Health Diagnoses: Yes Substance Use Disorders: Yes Previous Attempt: No Family History of Suicide: No Previous Psychiatric Hospitalization: No Hopelessness: No Protective Factors Assessment Caodaism Beliefs: Yes : No Responsible for Young Children: No Employed: Yes Stable Relationships: Yes Supportive Family: Yes Good Rapport with Provider: Yes Absence of Any Risk Factors Above: No Interval History Identifying Information JUAN MANUEL BUNDY is a 28-year-old white male who presents with an interrupted suicide attempt while intoxicated. No past psychiatric history. Brought in by police. Blood alcohol of 250 on admission. Was admitted on 02/26/24 22:43 on a 201 voluntary commitment for suicide attempt. Chief Complaint Depression Review of Systems Sleep Information Total Hours of Sleep: 7.5 Sleep Comments: Late admit Meal Information Percent Meal Consumed - Breakfast: 100 Percent Meal Consumed - Lunch: 100 Percent Meal Consumed - Dinner: 50 Subjective Subjective Patient was seen & assessed and interval progress reviewed with nursing and social work Patient reports not sleeping well. Did not use Vistaril as needed and encouraged to take advantage of it. When discussing alcohol use he reports only drinking on weekends and not weekdays and denies any withdrawal symptoms. He appears ambivalent about continuing antidepressant on an outpatient basis. When he reflects on past depression he minimizes impact on his life. Complains of poor sleep and increased anxiety and feels it is related to the medication. Feels he has not dealt with much dysfunction in the past. He denies current suicidal ideation. He is goal oriented to go home. Has been in touch with his family members. No other concerns reported Physical Exam Mental Examination Appearance: Disheveled Eye Contact: Fleeting Contact Motor Behavior: Restless Speech: Normal Mood: Anxious and Dyphoric Affect: Congruent Thought Process: Intact Thought Content: Intact and Linear Hallucinations: None Insight: Poor Judgement: Poor (recent attempt) Vital Signs (Past 24 Hours) Last Vital Signs Temp 36.8 C 02/28/24 06:48 Pulse 80 02/28/24 06:48 Resp 16 02/28/24 06:48 BP 159/79 H 02/28/24 06:48 Pulse Ox 97 02/26/24 23:53 O2 Del Method Room Air 02/26/24 23:53 Results & Data ([facility]) Current Inpatient Medications Current Inpatient Medications: Current Inpatient Medications Acetaminophen (Acetaminophen 325 Mg Tab) 650 mg PO Q4H PRN PRN Reason: Headache or Minor Fever Stop: 03/27/24 23:46 Al Hydrox/Mg Hydrox/Simethicone (Aluminum/Magnesium Susp 30 Ml Udc) 30 ml PO Q4H PRN PRN Reason: GI Upset Stop: 03/27/24 23:46 Bismuth Subsalicylate (Bismuth Subsalicylate Liqd 236 Ml) 15 ml PO PRN PRN PRN Reason: Loose Stool Stop: 03/27/24 23:46 Hydroxyzine HCl (Hydroxyzine Hcl 25 Mg Tab) 50 mg PO HSZ PRN PRN Reason: Insomnia Stop: 03/27/24 23:46 Hydroxyzine HCl (Hydroxyzine Hcl 25 Mg Tab) 25 mg PO Q4H PRN PRN Reason: Anxiety Stop: 03/27/24 23:46 Magnesium Hydroxide (Magnesium Hydroxide Susp 30 Ml Udc) 30 ml PO DAILY PRN PRN Reason: Constipation Stop: 03/27/24 23:46 Sertraline HCl (Sertraline Hcl 50 Mg Tablet) 50 mg PO QAM JOSEPH Stop: 03/28/24 12:29 Last Admin: 02/28/24 08:56 Dose: Not Given Sodium Chloride (Sodium Chloride 0.65% Na Soln 45 Ml ([place])) 1 - 2 sprays NA PRN PRN PRN Reason: Nasal Dryness/Congestion Stop: 03/27/24 23:46 Mental Health & Subst Abuse Tx Therapist Name of Therapist: Narcisa Therapist's Date of Therapist Appointment: 03/02/24 Time of Therapist Appointment: 930-11 Therapy Appointment Comment: [address], [place] [address], [place] [address] Senior Chemist Name of Senior Chemist: None Post Discharge Appointments Primary Care Physician Name Of Family Doctor/PCP: Ryley FAYE [facility] Date of Future Appointment with PCP: 03/01/24 Time of Appointment with PCP: 930 Provider Appointment Comment: [address], [place] [address]
[2024-02-28] MEDS: SERTRALINE HCL 50 MG TABLET PO ONE (21:01)
[2024-02-28] MEDS: hydrOXYzine HCl 25 MG TAB PO PRN (21:22)
--- NOTE | 2024-02-29 11:38 | Discharge Summary ---
Date of Service February 29, 2024 History of Present Illness From ER note " According to through to side warrant as well as police patient has been drinking for several days after significant other started dating someone else. Apparently he has been destroying his house breaking things and being aggressive. Last evening he opened a drawer containing a handgun at which point his roommates restrained him and called [place] delegate stating they are concerned for his life." Patient reports breaking up with girlfriend of 2 years a few months ago. Has complained of being more anxious and stressed. Started drinking more alcohol after the break-up; denies a drinking problem before. Reports alcohol helps cope with his feelings. Last night, he does not remember what happened after he got intoxicated however reports hearing that he destroyed his apartment and had his gun at his side. His roommates had to restrain him from hurting himself and 911 was called. Reports his father will hold his gun in a safe and is agreeable to not have it in his possession for the coming months. He presents a plan to stop drinking, see a therapist. Previously was drinking socially and recently escalated use. Sober days on weekdays. Smokes marijuana 3-4 times a week at bedtime for sleep and anxiety relief. Endorses social use of cocaine. Denies having regular drug or alcohol problem; denies other drug use. Reports for the past few months he has low mood, cannot fall and maintain his sleep, low energy, poor concentration, less interest in activities, increased guilt, and decreased appetite. He denies current suicidal ideation or suicidal ideation preceding the event. Reports past similar episodes of depression 2 years ago after a break-up with his girlfriend of 6 years and this lasted months. 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 Reports in the absence of depressive episodes continues to ruminate about different aspects of his life, anticipatory anxiety, and this has mild physical symptoms associated with it. Denies a history of panic symptoms. Denies history of multiple days of lack of sleep with elevated mood, energy, activity. Denies history of auditory or visual hallucinations. He denies history of suicide attempts. Reports having a good childhood. Denies physical, emotional, sexual abuse. Reports paternal grandfather had alcohol dependence. Father has anxiety disorder and is treated on medication. Grew up in [place] and parents were supportive. Works at [employer]. Hobbies include enemy fighting and weightlifting. Physical Exam Mental Examination Appearance: Well Groomed Eye Contact: Maintains Eye Contact Motor Behavior: Unremarkable Speech: Normal Mood: Euthymic and Calm Affect: Congruent Thought Process: Intact Thought Content: Intact and Linear Hallucinations: None Insight: Fair Judgement: Fair (recent attempt, now preparing reasonable plan to improve mental health) Vital Signs (Past 24 Hours) Last Vital Signs Temp 37 C 02/29/24 06:42 Pulse 77 02/29/24 06:42 Resp 16 02/29/24 06:42 BP 127/84 02/29/24 06:42 Pulse Ox 97 02/26/24 23:53 O2 Del Method Room Air 02/26/24 23:53 Principal Diagnosis MDD, recurrent, moderate FREIDA Alcohol abuse Psychiatric Data See daily stay summary. In short, safety was maintained and the patient was cooperative with care. Medication changes included initiating Sertraline 50mg daily and they tolerated this well. A family session was held and safety plan was completed prior to discharge. Day of Discharge Assessment Today the patient voices readiness for discharge. They note improvement in mood and deny thoughts to harm self or others. Thoughts remain organized and they are improved from admission. There is no evidence of psychosis. They agree to take mediations as prescribed and keep follow-up appointments. They are stable for discharge to outpatient level of care. Transition of Care Transition Of Care Record: was reviewed with the patient Advance Directives Advance Directives Information Provided: Yes Advance Directives: No Mental Health Advance Directive: No Advance Directives on File: No Living Will: No Power of Plodder Operator: No Advance Directives Reason:: Declines as Mental Health Visit. Risk Factors Assessment Male: Yes : Yes Do You Have Access To A Gun?: No (pt reports "no" but had gun in his drawer at home) Health Problems: No Mental Health Diagnoses: Yes Substance Use Disorders: Yes Previous Attempt: No Family History of Suicide: No Previous Psychiatric Hospitalization: No Hopelessness: No Protective Factors Assessment Druze Beliefs: Yes : No Responsible for Young Children: No Employed: Yes Stable Relationships: Yes Supportive Family: Yes Good Rapport with Provider: Yes Absence of Any Risk Factors Above: No Discharge Data Lab Results 02/26/24 02/26/24 12:44 21:31 WBC 7.41 RBC 5.84 Hgb 17.5 Hct 50.6 MCV 86.6 MCH 30.0 MCHC 34.6 RDW Std Deviation 39.3 RDW Coeff of Alxeandra 12.4 Plt Count 236 MPV 9.0 L Immature Gran % (Auto) 0.3 Neut % (Auto) 64.1 Lymph % (Auto) 30.1 [place] % (Auto) 4.9 Eos % (Auto) 0.1 Baso % (Auto) 0.5 Neut # (Auto) 4.75 Lymph # (Auto) 2.23 [place] # (Auto) 0.36 Eos # (Auto) 0.01 Baso # (Auto) 0.04 Immature Gran # (Auto) 0.02 Sodium 140 Potassium 4.3 Chloride 104 Carbon Dioxide 26 Anion Gap 10 BUN 11 Creatinine 0.91 Est Cr Clr Drug Dosing Not Reportable Est GFR ( Amer) 130.6 Est GFR (Non-Af Amer) 112.7 BUN/Creatinine Ratio 12.1 Glucose 98 Calcium 9.7 Total Bilirubin 0.5 AST 37 ALT 25 Alkaline Phosphatase 46 Total Protein 8.7 H Albumin 5.0 Globulin 3.7 Albumin/Globulin Ratio 1.4 TSH 0.969 Urine Color Yellow Urine Appearance Clear Urine pH 6.0 Ur Specific [place] 1.016 Urine Protein 2+ H Urine Glucose (UA) Negative Urine Ketones Negative Urine Blood Negative Urine Nitrite Negative Urine Bilirubin Negative Urine Urobilinogen Negative Ur Leukocyte Esterase Negative Urine WBC (Auto) 0-5 Urine RBC (Auto) 0-2 U Hyaline Cast (Auto) 0-2 U Epithel Cells (Auto) 0-2 Urine Bacteria (Auto) None Seen Salicylates < 3.0 L Urine Opiates Screen Neg Ur Methadone, Qual Neg Urine Fentanyl Screen Neg Acetaminophen < 3 L Urine Barbiturates Neg Ur Phencyclidine (PCP) Neg U Amphetamin/Meth Scrn Neg MDMA (Ecstasy) Screen Neg U Benzodiazepines Scrn Neg Ur Cocaine Metabolite Pos H U Marijuana (THC) Screen Pos H Ethyl Alcohol mg/dL 250.4 H SARS-CoV-2, RNA, NAAT NEGATIVE Hospital Course (1) Suicide attempt: (2) MDD (major depressive disorder), recurrent episode, moderate: (3) Alcohol abuse: (4) Generalized anxiety disorder: Plan 02/28/2024: Continue medications and treatment plan. Encourage use of Vistaril as needed for sleep and anxiety. 02/27/2024: Initiate Sertraline 50mg QD for depression and anxiety. Mental Health & Subst Abuse Tx Therapist Name of Therapist: Narcisa Therapist's Date of Therapist Appointment: 03/02/24 Time of Therapist Appointment: 930-11 Therapy Appointment Comment: [address], [address], [place] [address] [employer] Name of Assembl[employer] [place]: None Post Discharge Appointments Primary Care Physician Name Of Family Doctor/PCP: Ryley FAYE - [facility] Date of Future Appointment with PCP: 03/01/24 Time of Appointment with PCP: 930 Provider Appointment Comment: [address], [place] [address] Discharge Plan Discharge Items Patient Disposition: Home - Self-Care Reason For Visit: SUICIDAL IDEATION Discharge Diagnosis: Major Depressive Disorder, recurrent, moderate Generalized Anxiety Disorder Alcohol abuse Suicide attempt Condition on Discharge: Fair Activity: Resume your previous activity Non-emergency contact: Primary Care Provider and Psychiatrist Call non-emergency contact if: you have any medication questions and your symptoms worsen Follow-up/Referrals: Edmund Hill MD [Primary Care Provider] - Diet: Regular Addtl Attending Provider Instructions: -Continue Sertraline 50mg daily. Follow-up with PCP or psychiatrist. Symptom improvement in 4-6 weeks. It is normal for some patients to have increased anxiety in week 3-5, it can be distressing however is an indicator the medications are working. Please take hydroxyzine NEEDED to cope with symptoms during this time. -Hydroxyzine 50mg at bedtime NEEDED for insomnia, can take 25mg for anxiety. Pending Studies at Discharge: No Stand-Alone Forms: My [employer], Smoking Cessation Medications and DC Order Prescriptions: New sertraline 50 mg Tablet 50 mg PO QAM Qty: 30 2RF hydroxyzine HCl 50 mg tablet 50 mg PO HSZ PRN (Reason: insomnia, anxiety) Qty: 30 1RF Discharge Orders: Discharge Order (Routine); Ordered 02/29/24 Ordered By: Rafal Tobin/Other Patient Handouts: What Can Cause Depression?, Depression: Tips to Help Yourself, FREIDA Admission Data Admit Date/Time: 02/26/24 22:43 Attending Provider: Rafal Brown Admit Provider: Rafal Brown Primary Care Provider: Edmund Hill C[place] [address] D/C day mgmt > 30 min Patient Type Established History Expanded Problem Focused Exam Expanded Problem Focused Medical Decision Making Moderate Complexity Diagnoses Suicide attempt T14.91XA MDD (major depressive disorder), recurrent episode, moderate F33.1 Alcohol abuse F10.10 Generalized anxiety disorder F41.1
[2024-02-29 12:06] LABS: Cocaine, Urine >15000 ng/mL (<100); Marijuana Quant, GCMS Urine 616 ng/mL (<5)
== END 2024-02-29 14:24 | disposition home or self-care (01) | DRG 914 ==
LOC: ED 11:47 → 3S 22:43